=== PATIENT | female | born 1990 | race Caucasian/White ===

== ENCOUNTER 2016-09-29 12:35 | Inpatient (IN) | END 2016-10-02 14:15 | disposition home or self-care (01) | DRG 765 | DX: O36.8190 Decreased fetal movements, unspecified trimester, not applicable or unspecified (principal); O60.14X0 Preterm labor third trimester with preterm delivery third trimester, not applicable or unspecified; O32.1XX0 Maternal care for breech presentation, not applicable or unspecified; Z3A.37 37 weeks gestation of pregnancy; Z37.0 Single live birth; O36.5930 Maternal care for other known or suspected poor fetal growth, third trimester, not applicable or unspecified ==